=== PATIENT | male | born 1980 | race Caucasian/White ===

== ENCOUNTER 2019-07-05 13:50 | Inpatient (IN) | payer BC, MEDICAID ==
--- NOTE | 2019-07-04 22:49 | NUR ---
REINSERTED AN IV ON THE RIGHT HAND G 20, PT TOLERATED PROCEDURE, NO SWELLING NOTED. NO BLEEDING. REATTACHED AND CONTINUED THE IVF ORDERED. Addendum: 07/07/19 at 0358 by Dalila Gabriel RN WRONG TIME
[~2019-07-05] VITALS: Ht 185.4 cm; Wt 86.2 kg
[2019-07-05 14:00] VITALS: BP 116/72
[2019-07-05] MEDS ORDERED: IBUPROFEN 600 MG TAB PO ONE (14:25)
--- NOTE | 2019-07-05 14:49 | NUR ---
38 YR OLD M BIB SELF C/O PAINFUL 6/10 BOIL, RT BUTTOCK X 2 DAYS . APPLIED HEAT PADS. +SUBJECTIVE FEVER PMH: DM MEDS: NONE
[2019-07-05 15:00] LABS: BASOPHILS # (AUTO) 0.1 K/uL (0.00-0.22); BASOPHILS % (AUTO) 0.8 % (0.0-2.0); EOSINOPHILS % (AUTO) 0.3 % (0.0-4.0); HEMATOCRIT 42.9 % (36-52); HEMOGLOBIN 14.8 g/dL (12.0-18.0); LYMPHOCYTES # (AUTO) 1.1 K/uL (2.0-11.5); LYMPHOCYTES % (AUTO) 8.5 % (20.5-51.1); MEAN CORPUSCULAR HEMOGLOBIN 32 pg (27-31); MEAN CORPUSCULAR HGB CONC 34 g/dL (33-37); MEAN CORPUSCULAR VOLUME 91.4 fL (80-94); MONOCYTES # (AUTO) 0.9 K/uL (0.8-1.0); MONOCYTES % (AUTO) 7.1 % (1.7-9.3); NEUTROPHILS # (AUTO) 11.1 K/uL (1.8-7.7); NEUTROPHILS % (AUTO) 83.3 % (42.2-75.2); PLATELET COUNT (AUTO) 260 K/uL (140-450); RED BLOOD CELL COUNT(AUTO) 4.69 MIL/uL (4.20-6.10); RED CELL DISTRIBUTION WIDTH 11.7 % (11.6-13.7); WHITE BLOOD COUNT (AUTO) 13.3 K/uL (4.8-10.8)
[2019-07-05 15:25] LABS: PROTHROMBIN TIME 9.6 secs (10.8-13.4)
[2019-07-05 15:30] LABS: ALBUMIN 3.2 g/dL (3.4-5.0); ANION GAP 10.8 (8-16); CARBON DIOXIDE 29.8 mmol/L (21-32); CREATININE 0.9 mg/dL (0.6-1.3); POTASSIUM 3.6 mmol/L (3.5-5.1); TOTAL BILIRUBIN 0.8 mg/dL (0.0-1.0)
[2019-07-05] MEDS ORDERED: NACL 0.9% 1,000 ML IV ONE (16:45)
[2019-07-05] MEDS ORDERED: PIPERACILLIN/TAZOBACTAM 3.375 GM in DEXTROSE 5% 50 ML IV ONE (17:35)
[2019-07-05] MEDS ORDERED: metroNIDAZOLE 500 MG/NS PREMIX 100 ML IV ONE (17:35)
[2019-07-05] MEDS ORDERED: ONDANSETRON 4 MG/2 ML VIAL IM/IVP PRN (17:45)
[2019-07-05] MEDS ORDERED: PIPERACILLIN/TAZOBACTAM 3.375 GM VIAL IV ONE (17:45)
[2019-07-05] MEDS ORDERED: DOCUSATE SODIUM 100 MG GELCAP PO PRN (17:45)
[2019-07-05] MEDS ORDERED: HYDROcodone/APAP 7.5/325 MG 1 TAB PO PRN (17:45)
--- NOTE | 2019-07-05 18:00 | NUR ---
Note marianne in EDM - 07/05/19 at 1841 by [email or web address] Patient will be admitted to care of Dr Lopez. Admited to tele room 126b. Belongings list completed. Report to CLARIBEL Reyes.
--- NOTE | 2019-07-05 18:00 | NUR ---
Note marianne in EDM - 07/05/19 at 1839 by [email or web address] Patient will be admitted to care of Dr Lopez. Admited to tele room 126b. Belongings list completed. Report to CLARIBEL Reyes.
--- NOTE | 2019-07-05 18:00 | NUR ---
Patient will be admitted to care of Tele. Admited to tele room 126b. Belongings list completed. Report to CLARIBEL Reyes.
[2019-07-05] MEDS ORDERED: DEXTROSE 50% 50 ML SYR IVP PRN (18:20)
[2019-07-05 18:36] LABS: PROTHROMBIN TIME 9.3 secs (10.8-13.4)
--- NOTE | 2019-07-05 19:15 | NUR ---
LAB CALLED FOR CRITICAL LAB VALUE - LACTIC ACID 2.[address] AT [address] WISE. READ BACK TO DR. WISE AT 191, NNO.
[2019-07-05] MEDS: DEXT 5% /NACL 0.9% 1,000 ML IV SCH (19:30)
--- NOTE | 2019-07-05 19:30 | NUR ---
RECEIVED BEDSIDE REPORT FROM AM SHIFT RN FOR PT'S CONTINUITY OF CARE. PT IS AAOX4, AMBULATORY, IS ON BACK ORDER CLERK, ON ROOM AIR, HAS RIGHT AC 20G SALINE LOCK, DENIES ANY PAIN AT THIS TIME. COLLECTED MRSA SWAB, PT TEACHING GIVEN RE: URINE COLLECTION, ADMISSION PAPERWORK COMPLETED. EXPLAINED TO PT THE INSIDE SALES CONSULTANT ROUTINE, PT VERBALIZED UNDERSTANDING. SAFETY MEASURES IN PLACE, AND CALL LIGHT IS WITHIN REACH. WILL MONITOR PT THROUGHOUT SHIFT.
[2019-07-05] MEDS ORDERED: NACL 0.9% 1,500 ML IV ONE (19:50)
[2019-07-05] MEDS ORDERED: NACL 0.9% 250 ML IV ONE (19:50)
[2019-07-05 20:00] VITALS: BP 139/94
[2019-07-05] MEDS ORDERED: METF500T PO (20:50)
--- NOTE | 2019-07-05 21:00 | NUR ---
HUNG SECOND BAG OF IVF BOLUS, NS 1,000 ML.
[2019-07-05 21:22] LABS: CHOL/HDL RATIO 3.7 (1-4.5); FREE T4 (FREE THYROXINE) 1.04 ng/dL (0.76-1.46); MAGNESIUM 1.8 mg/dL (1.8-2.4); PHOSPHORUS 2.7 mg/dL (2.5-4.9); THYROID STIMULATING HORMONE 1.4 uIU/mL (0.34-3.74)
[2019-07-05] MEDS: BLOOD GLUCOSE MONITORING 1 DEV DEV FS SCH (21:39)
[2019-07-05] MEDS: INSULIN LISPRO SLIDING SCALE 100 UNITS/ML VIAL SUBQ PRN (21:44)
[2019-07-05] MEDS: metFORMIN 500 MG TAB PO SCH (21:48)
--- NOTE | 2019-07-05 21:48 | NUR ---
BLOOD GLUCOSE CHECKED AND CHARTED. ADMINISTERED SCHEDULED PO AND PRN SUBQ INSULIN PER PROTOCOL, ORDERED. PT TOLERATED THEM WELL. PT TEACHING GIVEN. PT'S NEEDS MET AT THIS TIME. WILL CONTINUE TO MONITOR PT.
[2019-07-05] MEDS: ACETAMINOPHEN 325 MG TAB PO PRN (23:27)
--- NOTE | 2019-07-05 23:27 | NUR ---
PT C/O MILD PAIN ON BUTTOCKS AREA. ADMINISTERED PRN PO PAIN MEDICATION ORDERED. PT TOLERATED IT WELL, PT TEACHING GIVEN, OFFERED NON-PHARMACOLOGICAL TECHNIQUES FOR PAIN RELIEF, PT VERBALIZED UNDERSTANDING. WILL CONTINUE TO MONITOR PT.
[2019-07-06] VITALS (7 sets, daily range): BP systolic 105–157; BP diastolic 65–100
[2019-07-06 02:13] LABS: BARBITURATE, URINE NEG. ng/ml (NEG <=200); BENZODIAZEPINE, URINE NEG. ng/mL (NEG <=200); CANNABINOID, URINE NEG. ng/mL (NEG <=50); COCAINE, URINE NEG. ng/mL (NEG <=300); OPIATE, URINE NEG. ng/mL (NEG <=2000); PHENCYCLIDINE SCREEN,URINE NEG. ng/mL (NEG <=25)
--- NOTE | 2019-07-06 02:30 | NUR ---
PT WOKE UP, HUNG IVF NS AT 500 ML BOLUS. PT DENIES ANY PAIN. WILL CONTINUE TO MONITOR PT.
--- NOTE | 2019-07-06 04:00 | NUR ---
VS CHECKED AND CHARTED. PT ASLEEP WITH NO SIGNS OF DISTRESS. WILL CONTINUE TO MONITOR PT.
[2019-07-06 05:07] LABS: APPEARANCE,URINE CLEAR (CLEAR); BLOOD, URINE TRACE (NEGATIVE); COLOR,URINE YELLOW (YELLOW); UGLUCOSE 4+ (NEGATIVE)
[2019-07-06 05:08] LABS: BILIRUBIN,URINE NEGATIVE (NEGATIVE); LEUKOCYTE ESTERASE ,URINE NEGATIVE (NEGATIVE); NITRITE, URINE NEGATIVE (NEGATIVE)
[2019-07-06 05:09] LABS: RBC,URINE 0-5 /HPF (0-5); WBC,URINE 0-5 /HPF (0-5)
[2019-07-06] MEDS: DEXT 5% /NACL 0.9% 1,000 ML IV SCH ×2 (06:00→13:43)
[2019-07-06] MEDS: BLOOD GLUCOSE MONITORING 1 DEV DEV FS SCH ×4 (06:02→20:59)
[2019-07-06] MEDS: INSULIN LISPRO SLIDING SCALE 100 UNITS/ML VIAL SUBQ PRN ×4 (06:05→20:51)
--- NOTE | 2019-07-06 06:15 | NUR ---
BLOOD GLUCOSE CHECKED AND CHARTED. ADMINISTERED SUBQ INSULIN PER SS PROTOCOL. PT TOLERATED IT WELL. PT C/O NAUSEA, ADMINISTERED PRN IVP ANTI NAUSEA MEDICATION ORDERED. PT TOLERATED IT WELL. PT DENIES ANY PAIN AT THIS TIME. WILL ENDORSE TO AM SHIFT RN FOR PT'S CONTINUITY OF CARE.
--- NOTE | 2019-07-06 07:36 | NUR ---
PT IS IN BED RESTING AT THIS TIME. NO DISTRESS NOTED. PT IS AWAKE AND RESPONSIVE. NO COMPLAINS OF PAIN. CALL LIGHT IN REACH.
[2019-07-06] MEDS ORDERED: LIDOCAINE MPF 1% 10 MG/ML VIAL INJ SCH (08:00)
--- NOTE | 2019-07-06 08:18 | NUR ---
PATIENT HAS BEEN SCREENED AND CATEGORIZED MODERATE NUTRITION RISK. PATIENT WILL BE SEEN WITHIN 3-5 DAYS OF ADMISSION. 07/08/19 07/10/[address]
[2019-07-06] MEDS: metFORMIN 500 MG TAB PO SCH ×2 (08:20→20:42)
[2019-07-06] MEDS: LACTOBACILLUS RHAMNOSUS GG 1 EACH CAP PO SCH (08:20)
[2019-07-06] MEDS ORDERED: HYDROmorphone 1 MG/ML AMP IVP PRN (08:35)
[2019-07-06] MEDS ORDERED: KCL 20 MEQ/WATER INJ PREMIX 200 ML IV PRN (09:25)
--- NOTE | 2019-07-06 11:15 | NUR ---
INCISION AND DRAINAGE DONE BY BEDSIDE BY DR GAN AND DR SALCIDO. ABDOMINAL PAD WAS PLACED AND TAPED. DILAUDID WAS GIVEN IV FOR PAIN. WILL CONTINUE TO MONITOR. CALL LIGHT IN REACH.
--- NOTE | 2019-07-06 11:15 | NUR ---
PT IS IN BED AT T HIS TIME. NO COMPLAINS OF PAIN OR DISTRESS NOTED. CALL LIGHT IN REACH.
--- NOTE | 2019-07-06 11:16 | NUR ---
INCISION AND DRAINAGE AT 0900.
--- NOTE | 2019-07-06 13:23 | NUR ---
PT IS IN BED RESTING. NO COMPLAINS OF PAIN NO DISTRESS NOTED. CALL LIGHT IN REACH.
[2019-07-06] MEDS: NACL 0.9% 1,000 ML IV SCH (18:08)
--- NOTE | 2019-07-06 19:19 | NUR ---
SHIFT REPORT GIVEN TO PILOT MANAGER NURSE. PT IS IN BED IN STABLE CONDITION. CALL LIGHT IN REACH.
--- NOTE | 2019-07-06 19:20 | NUR ---
RECEIVED BEDSIDE REPORT FROM AM SHIFT, IMMANUEL. PT IS AAOX4, AMBULATORY, ON TELEMONITORING. S/P I&D PERIRECTAL ABSCESS, NO BLEEDING NOTED, ON ROOM AIR, HAS RIGHT AC 20G NS AT 60 ML/HR. WITH MILD PAIN O THE PERIRECTAL AREA. , PT TEACHING GIVEN SAFETY MEASURES IN PLACE, AND CALL LIGHT IS WITHIN REACH. WILL MONITOR PT THROUGHOUT SHIFT.
--- NOTE | 2019-07-06 20:00 | NUR ---
VITAL SIGNS TAKEN 100.1, BP 157/100; RR=20; HR 105; MILD PAIN NOTED, ABSCESS.
[2019-07-06] MEDS: ACETAMINOPHEN 325 MG TAB PO PRN (20:43)
--- NOTE | 2019-07-06 22:00 | NUR ---
PT SLEEPING RECHECKED VITAL SIGNS . TEMP 99. 1; BP= 105/65; 93 HEART RATE; DENIES PAIN, WAS GIVEN PAIN MEDS EARLIER FOR MILD PAIN.
--- NOTE | 2019-07-06 22:30 | NUR ---
PT'S IVF LEAKING, CHECKED ON THE IVF, STILL LEAKING. DISCONTINUED THE PRESENT IVF R AC G 20; IV CANNULA REMOVED INTACT.
--- NOTE | 2019-07-06 22:49 | NUR ---
REINSERTED AN IV ON THE RIGHT HAND G 20, PT TOLERATED PROCEDURE, NO SWELLING NOTED. NO BLEEDING. REATTACHED AND CONTINUED THE IVF ORDERED.
--- NOTE | 2019-07-07 00:01 | NUR ---
CHECKED ON PATIENT, SLEEPING NOW, NO COMPLAINTS, NO SOB WILL CONTINUE TO MONITOR.
[2019-07-07 04:00] VITALS: BP 142/89
[2019-07-07] MEDS: BLOOD GLUCOSE MONITORING 1 DEV DEV FS SCH (06:03)
[2019-07-07] MEDS: INSULIN LISPRO SLIDING SCALE 100 UNITS/ML VIAL SUBQ PRN (06:08)
--- NOTE | 2019-07-07 06:54 | NUR ---
PT SLEEPING, BUT EASILY AWAKENED, , AMBULATORY, PT NO RECTAL BLEEDING NOTED, PT IN STABLE CONDITION. WILL ENDORSE TO NEXT SHIFT.
[2019-07-07 07:03] LABS: BASOPHILS # (AUTO) 0.1 K/uL (0.00-0.22); BASOPHILS % (AUTO) 0.5 % (0.0-2.0); EOSINOPHILS # (AUTO) 0.1 K/uL (0-0.4); EOSINOPHILS % (AUTO) 0.7 % (0.0-4.0); HEMATOCRIT 35.3 % (36-52); HEMOGLOBIN 11.9 g/dL (12.0-18.0); LYMPHOCYTES # (AUTO) 1.6 K/uL (2.0-11.5); LYMPHOCYTES % (AUTO) 12.8 % (20.5-51.1); MEAN CORPUSCULAR HEMOGLOBIN 31 pg (27-31); MEAN CORPUSCULAR HGB CONC 34 g/dL (33-37); MEAN CORPUSCULAR VOLUME 91.8 fL (80-94); MONOCYTES # (AUTO) 1.1 K/uL (0.8-1.0); MONOCYTES % (AUTO) 9.2 % (1.7-9.3); NEUTROPHILS # (AUTO) 9.4 K/uL (1.8-7.7); NEUTROPHILS % (AUTO) 76.8 % (42.2-75.2); PLATELET COUNT (AUTO) 251 K/uL (140-450); RED BLOOD CELL COUNT(AUTO) 3.84 MIL/uL (4.20-6.10); RED CELL DISTRIBUTION WIDTH 11.6 % (11.6-13.7); WHITE BLOOD COUNT (AUTO) 12.2 K/uL (4.8-10.8)
--- NOTE | 2019-07-07 07:15 | NUR ---
RECEIVED REPORT FROM PROCESS COORDINATOR NURSE. PATIENT LYING DOWN IN BED SLEEPING, AROUSABLE BY VOICE. NO DISTRESS NOTED. DENIES ANY PAIN. AAOX4, CALM, COOPERATIVE, SKIN COLOR APPROPRIATE TO ETHNICITY, WARM TO TOUCH. HAS RIGHT PERIANAL S/P I&D, DRESSING DRY AND INTACT. IV SITE INTACT, PATENT, AND INFUSING IVF PER MD ORDERS. RESPIRATIONS EVEN, UNLABORED, ON ROOM AIR. REVIEWED PLAN OF CARE WITH PATIENT. PATIENT VERBALIZED UNDERSTANDING. SAFETY MEASURES IN PLACE, CALL LIGHT WITHIN REACH. WILL CONTINUE TO MONITOR.
[2019-07-07 07:28] LABS: ANION GAP 13.5 (8-16); CARBON DIOXIDE 25.8 mmol/L (21-32); CREATININE 0.7 mg/dL (0.6-1.3); POTASSIUM 3.3 mmol/L (3.5-5.1)
[2019-07-07 08:00] VITALS: BP 121/87
[2019-07-07 08:15] LABS: T4 (THYROXINE) 5.5 ug/dL (4.5-12.0)
[2019-07-07] MEDS ORDERED: SITA100T8 PO (08:38)
[2019-07-07] MEDS ORDERED: ASCO1CAP75 PO (08:38)
[2019-07-07] MEDS ORDERED: AMOX-999 PO (08:38)
[2019-07-07] MEDS: LACTOBACILLUS RHAMNOSUS GG 1 EACH CAP PO SCH (09:23)
[2019-07-07] MEDS: metFORMIN 500 MG TAB PO SCH (09:24)
--- NOTE | 2019-07-07 09:26 | NUR ---
SCHEDULED MEDS DUE GIVEN. WILL CONTINUE TO MONITOR.
[2019-07-07] MEDS: NACL 0.9% 1,000 ML IV SCH (10:10)
[2019-07-07] MEDS ORDERED: INFLUENZA VACCINE QUAD 0.5 ML SYR IMVAC PRN (10:50)
--- NOTE | 2019-07-07 11:45 | NUR ---
DISCHARGE INSTRUCTIONS PROVIDED TO PATIENT IN PREFERRED LANGUAGE OF SERBIAN. INSTRUCTIONS ON NEW MEDICATIONS AND SIDE EFFECTS, CARE AFTER I&D, AND FOLLOW-UP WITH SURGEON AND PCP. ANSWERED ALL OF PATIENT'S QUESTIONS REGARDING DISCHARGE. PATIENT VERBALIZED COMPLETE UNDERSTANDING. IV SITE REMOVED WITH MINIMAL BLOOD AND LUMEN COMPLETELY INTACT. ID BANDS REMOVED. FAMILY MEMBER AT BEDSIDE READY TO TAKE PATIENT HOME. ESCORTED PATIENT DOWN TO LOBBY VIA STEADY AMBULATION. PATIENT DISCHARGED AT THIS TIME IN STABLE CONDITION.
[2019-07-07] MEDS ORDERED: POTA10TE30 PO ×2 (17:18→17:27)
== END 2019-07-07 11:45 | disposition home or self-care (01) | DRG 854 ==
LOC: MED 13:50 → MMU 17:46
PROVIDERS: ADMIT General Practice; ATTEND General Practice
PROC: 0D9QXZZ Drainage of Anus, External Approach (ICD-10-PCS; principal; 2019-07-06)
DX: A41.9 Sepsis, unspecified organism (principal); K61.1 Rectal abscess; K61.0 Anal abscess; I30.9 Acute pericarditis, unspecified; R65.20 Severe sepsis without septic shock; K80.20 Calculus of gallbladder without cholecystitis without obstruction; E87.6 Hypokalemia; E11.65 Type 2 diabetes mellitus with hyperglycemia; Z79.84 Long term (current) use of oral hypoglycemic drugs; Z91.19 Patient's noncompliance with other medical treatment and regimen
CPT/HCPCS: 36415; 71045; 72193; 80048; 80053; 80305; 81001; 82150; 82948; 83036; 83605; 83690; 83735; 83880; 84100; 84436; 84439; 84443; 84479; 84484; 85025; 85610; 85730; 87040; 87081; 87086; 93005; 96365; 96367; 99285; J1170; J1815; J2001; J2405; J2543; J3490; J7030; J7042; Q0092; Q9967